=== PATIENT | female | born 1975 | race Caucasian/White ===

== ENCOUNTER 2017-01-16 17:33 | Emergency (ER) | payer BC ==
[2017-01-16 18:29] VITALS: BP 130/90
[2017-01-16] MEDS ORDERED: Amoxicillin/Clavulanate TAB* 875 MG PO ONE (19:16)
--- NOTE | 2017-01-16 19:31 | UC ---
Throat Pain/Nasal Ahsan HPI - HPI Summary HPI Summary: NINE DAYS OF SINUS CONGESTION AND PRESSURE, WORSE ON RIGHT SIDE. - History of Current Complaint Chief Complaint: UC Stated Complaint: SINUS CONGESTION Time Seen by Provider: 01/16/17 18:19 Hx Obtained From: Patient Hx Last Menstrual Period: January 07 Onset/Duration: Gradual Onset, Lasting Weeks, Worse Since - DAILY Severity: Moderate Cough: Nonproductive Associated Signs & Symptoms: Positive: Sinus Discomfort, Nasal Discharge - Epiglottits Risk Factors Epiglottis Risk Factors: Negative - Allergies/Home Medications Allergies/Adverse Reactions: Allergies Allergy/AdvReac Type Severity Reaction Status Date / Time No Known Allergies Allergy Verified 01/16/17 18:30 Home Medications: Home Medications Escitalopram (NF) [Lexapro (NF)] 5 mg PO DAILY 01/16/17 [History Confirmed 01/16] Phenylephrine W/ Dm-GG [Mucinex Congestion & Coug 2.5-5-100 mg/5Ml] 01/16/17 [ History] PMH/Surg Hx/FS Hx/Imm Hx Previously Healthy: Yes Endocrine History Of: Denies: Diabetes, Thyroid Disease Cardiovascular History Of: Denies: Cardiac Disorders, Hypertension Respiratory History Of: Denies: COPD, Asthma GI/ History Of: Denies: Ulcer Cancer History Of: Denies: Breast Cancer - Surgical History Surgical History: None - Family History Known Family History: Negative: Respiratory Disease - Social History Occupation: Employed Full-time Lives: With Family Alcohol Use: None Substance Use Type: None Smoking Status (MU): Never Smoked Tobacco Review of Systems Constitutional: Negative Skin: Negative Eyes: Negative ENT: Nasal Discharge Respiratory: Cough Cardiovascular: Negative Gastrointestinal: Negative Genitourinary: Negative Motor: Negative Neurovascular: Negative Musculoskeletal: Negative Neurological: Negative Psychological: Negative All Other Systems Reviewed And Are Negative: Yes Physical Exam Triage Information Reviewed: Yes Appearance: Well-Nourished, Ill-Appearing - MILD, Pain Distress - MILD Vital Signs: Initial Vital Signs Temp 98.5 F 01/16/17 18:20 Pulse 63 01/16/17 18:20 Resp 18 01/16/17 18:20 BP 130/90 01/16/17 18:20 Pulse Ox 100 01/16/17 18:20 Vital Signs Reviewed: Yes Eye Exam: Normal Eyes: Positive: Conjunctiva Clear ENT: Positive: Pharynx normal, Nasal congestion, Nasal drainage, TM bulging, TM dull Dental Exam: Normal Neck exam: Normal Neck: Positive: Supple, Nontender, No Lymphadenopathy Respiratory Exam: Normal Respiratory: Positive: Chest non-tender, Lungs clear, Normal breath sounds, No respiratory distress, No accessory muscle use Cardiovascular Exam: Normal Cardiovascular: Positive: RRR, No Murmur, Pulses Normal, Brisk Capillary Refill Abdominal Exam: Normal Musculoskeletal Exam: Normal Musculoskeletal: Positive: Strength Intact, ROM Intact Neurological Exam: Normal Psychological Exam: Normal Skin Exam: Normal Throat Pain/Nasal Course/Dx - Differential Dx/Diagnosis Differential Diagnosis/HQI/PQRI: Otitis Media, Pharyngitis, Sinusitis, Tonsillitis, URI Provider Diagnoses: SINUSITIS Discharge - Discharge Plan Condition: Stable Disposition: HOME Prescriptions: Amoxicillin/Clavulanate TAB* [Augmentin TAB 875*] 875 mg PO BID #20 tab Fluticasone NASAL SPRAY 50MCG* [Flonase NASAL SPRAY 50MCG*] 2 spray BOTH NARES DAILY #1 btl Patient Education Materials: Sinusitis (ED) Referrals: [facility] [place] [facility]IAN REFERRAL [Outside]
== END 2017-01-16 19:33 | disposition home or self-care (01) ==
LOC: UCEAST 17:33
DX: R09.81 Nasal congestion (principal); J32.9 Chronic sinusitis, unspecified
CPT/HCPCS: 99212; A9270-GY; G0463

== ENCOUNTER 2019-04-04 07:11 | Emergency (ER) | payer BC ==
[2019-04-04 07:29] VITALS: BP 123/71
--- NOTE | 2019-04-04 08:10 | UC ---
Skin Complaint HPI - HPI Summary HPI Summary: PATIENT DISCOVERED A TICK ATTACHED TO HER RIGHT GROIN THIS MORNING. HAS BEEN HAVING SOME DISCOMFORT IN THE AREA FOR THE PAST FEW DAYS. [place] TICKS [place]VAL[place] SO IT'S VERY POSSIBLE IT ATTACHED TO HER A FEW DAYS AGO WHEN HER DISCOMFORT STARTED. - History of Current Complaint Chief Complaint: [facility] Time Seen by Provider: 04/04/19 07:20 Stated Complaint: TICK Hx Obtained From: Patient Hx Last Menstrual Period: 03/23/19 Onset/Duration: Lasting Days, Still Present Timing: Constant Onset Severity: Moderate Current Severity: Moderate Pain Intensity: 5 Pain Scale Used: 0-10 Numeric Location: Other - RIGHT GROIN Aggravating Factor(s): Touch Alleviating Factor(s): Nothing Associated Signs & Symptoms: Positive: Tenderness - Allergy/Home Medications Allergies/Adverse Reactions: Allergies Allergy/AdvReac Type Severity Reaction Status Date / Time No Known Allergies Allergy Verified 04/04/19 07:28 Home Medications: Home Medications Gabapentin 1,200 mg PO DAILY 04/04/19 [History Confirmed 04/04/19] Loratadine 10 mg PO DAILY 04/04/19 [History Confirmed 04/04/19] Vilazodone HCl [Viibryd] 1 tab PO DAILY 04/04/19 [History Confirmed 04/04/19] PMH/Surg Hx/FS Hx/Imm Hx Psychological History: Anxiety, Depression - Surgical History Surgical History: Yes Surgery Procedure, Year, and Place: x2 - Family History Known Family History: Positive: Non-Contributory Negative: Respiratory Disease - Social History Alcohol Use: None Substance Use Type: None Smoking Status (MU): Never Smoked Tobacco Review of Systems All Other Systems Reviewed And Are Negative: Yes Constitutional: Positive: Negative Skin: Positive: Other - TICK ATTACHED RIGHT GROIN Respiratory: Positive: Negative Cardiovascular: Positive: Negative Gastrointestinal: Positive: Negative Physical Exam Triage Information Reviewed: Yes Appearance: Well-Appearing, No Pain Distress, Well-Nourished Vital Signs: Initial Vital Signs Temp 99.1 F 04/04/19 07:22 Pulse 90 04/04/19 07:22 Resp 18 04/04/19 07:22 BP 123/71 04/04/19 07:22 Pulse Ox 100 04/04/19 07:22 Vital Signs Reviewed: Yes Eyes: Positive: Conjunctiva Clear ENT: Positive: Hearing grossly normal Neck: Positive: Supple Respiratory: Positive: No respiratory distress, No accessory muscle use Cardiovascular: Positive: Pulses Normal Abdomen Description: Positive: Soft Musculoskeletal: Positive: No Edema Neurological: Positive: Alert Psychological: Positive: Age Appropriate Behavior Skin: Positive: Other - TICK ATTACHED RIGHT GROIN. 1CM AREA OF SURROUNDING ERYTHEMA. MILDLY TENDER Course/Dx - Course Course Of Treatment: TICK REMOVED IN ENTIRETY BY MD USING TICK TWISTER. COUNSELED PT ON LOW RISK OF DOMINIK LYME DISEASE FROM THIS TICK. LYME PROPHYLAXIS WITH 200MG DOXY PROVIDED. KEEP THE AREA CLEAN AND BE VIGILANT OF SX OVER THE NEXT 4-6 WEEKS. - Diagnoses Provider Diagnosis: Tick bite of groin Discharge - Sign-Out/Discharge Documenting (check all that apply): Patient Departure All imaging exams completed and their final reports reviewed: No Studies - Discharge Plan Condition: Stable Disposition: HOME Prescriptions: Doxycycline Monohydrate 2 cap PO ONCE #2 cap Patient Education Materials: Tick Bite (ED) Referrals: Lisa Ochoa MD [Primary Care Provider] - If Needed Additional Instructions: You received a prescription for 200mg of doxycycline for prophylaxis against Lyme disease. The Infectious Disease Society of [place] (IDSA) does not generally recommend antimicrobial prophylaxis for prevention of Lyme disease after a recognized tick bite. However, in areas that are highly endemic for Lyme disease, a single dose of doxycycline may be offered to adult patients (200 mg) who are not and to children older than 8 years of age (4 mg/kg up to a maximum dose of 200 mg) when all of the following circumstances exist: CRITERIA FOR RECEIVING PROPHYLACTIC TREATMENT FOR LYME DISEASE 1) TICK ATTACHED FOR AT LEAST 36 HRS 2) TICK IS AN ADULT OR [place] DEER TICK 3) YOU LIVE IN AN AREA WHERE LYME DISEASE IS PREVALENT (i.e., [place], [place], [place], [place], [place] , [place], [place], [place], [place], [place], [place], [place], [place], [place]) 4) YOU HAVE NO CONTRAINDICATION TO THE MEDICATION (DOXYCYCLINE) 5) PROPHYLAXIS IS BEGUN WITHIN 72 HRS OF TICK REMOVAL YOUR CHANCES OF DEVELOPING LYME DISEASE FROM THIS TICK ARE SMALL. HOWEVER, 1 TICK MEANS THERE MAY HAVE BEEN OTHER TICKS OF WHICH YOU WEREN'T AWARE. SO BE VIGILANT OF YOUR SYMPTOMS AND DON'T HESITATE TO GET SEEN AGAIN IF YOU DEVELOP UNEXPLAINED FEVER, HEADACHE, JOINT PAIN, BODY ACHES, RASH OR ANY OTHER CONCERNING SYMPTOMS. Antibiotic treatment following a tick bite is not recommended as a means to prevent anaplasmosis, babesiosis, ehrlichiosis, or [place] spotted fever. There is no evidence this practice is effective, and it may simply delay onset of disease. Instead, persons who experience a tick bite should be alert for symptoms suggestive of tickborne illness and consult a physician if fever, rash, headache or other symptoms of concern develop. - Billing Disposition and Condition Condition: STABLE Disposition: Home
== END 2019-04-04 08:10 | disposition home or self-care (01) ==
LOC: UCEAST 07:11
DX: S30.861A Insect bite (nonvenomous) of abdominal wall, initial encounter (principal); W57.XXXA Bitten or stung by nonvenomous insect and other nonvenomous arthropods, initial encounter; Z79.899 Other long term (current) drug therapy
CPT/HCPCS: 99212; G0463